=== PATIENT | female | born 1925 | race Caucasian/White ===

== ENCOUNTER 2017-01-28 06:59 | Emergency (ER) | payer OTHER, MEDICARE ==
[2017-01-28] MEDS ORDERED: ACETAMINOPHEN 325 MG TABLET (FP) PO ONE (07:21)
[2017-01-28 07:30] VITALS: TEMP 98.2; BMI 24.9
--- NOTE | 2017-01-28 07:30 | PDOC ---
History of Present Illness <Gail Lockhart - Last Filed: 01/28/17 08:48> - General History Source: Patient Exam Limitations: No Limitations - History of Present Illness Initial Comments: 01/28/17 07:30 89y F hx of htn, presents with fall. Tjhe pt was in her usual state of health, this morning, she went to the bathroom and when she was getting off of the toilet, she tripped and fell landing on her right side. The pt denies any loc, syncope, cp, sob, abd pain, back pain, headach, dizziness, vision changes, numbness/weakness/tingling, fever/chills, cough, diarrhea, dysrua/frqeuncy. The pt is complaining of pain on her right rib area, denies any sob. is on asa 325mg <Andrew Mckeon - Last Filed: 01/29/17 07:08> - General Chief Complaint: Injury Stated Complaint: FALL Time Seen by Provider: 01/28/17 07:12 Past History <Gail Lockhart - Last Filed: 01/28/17 08:48> <Andrew Mckeon - Last Filed: 01/29/17 07:08> - Past Medical History Allergies/Adverse Reactions: Allergies Allergy/AdvReac Type Severity Reaction Status Date / Time No Known Allergies Allergy Verified 01/28/17 07:20 Home Medications: Ambulatory Orders Oxycodone HCl/Acetaminophen [Percocet 5-325 mg Tablet -] 0.5 combo PO Q6H PRN # 14 tablet MDD 4 01/28/17 Review of Systems - Review of Systems Able to Perform ROS?: Yes Comments:: 01/28/17 07:33 Constitutional - no reported Fever, Chills, weakness, HEENT: no reported vision changes, sore throat Respiratory: no reported cough, sob, hemoptysis Cardiac: no reported chest pain, palpitations, light headedness, leg swelling Abd/GI: no reported abd pain, nausea, vomiting, blood per rectum, melena, diarrhea : no reported dysuria, frequency, discharge Musculskelatal - +rib pain no reported back pain, joint swelling skin - no reported bruising, erythema, rash neurological: no reported headache, numbness, focal weakness, tingling, ataxia, weakness hematologic: no reported anemia, easy bruising, easy bleeding <Andrew Mckeon - Last Filed: 01/29/17 07:08> *Physical Exam - Vital Signs Last Vital Signs Temp Pulse Resp BP Pulse Ox 98.2 F 71 20 120/67 100 01/28/17 07:21 01/28/17 07:21 01/28/17 07:21 01/28/17 07:21 01/28/17 07:21 <UtsGail - Last Filed: 01/28/17 08:48> - Physical Exam Comments: 01/28/17 07:33 GENERAL: The patient is awake, alert, and fully oriented, Nontoxic - in no acute distress. HEAD: Normocephalic, atraumatic. EYES: extraocular movements intact, sclera anicteric, conjunctiva clear. ENT: Normal voice, Moist mucous membranes. NECK: Normal range of motion, supple LUNGS: Breath sounds equal, clear to auscultation bilaterally. No wheezes, no rhonchi, no rales. HEART: Regular rate and rhythm, normal S1 and S2 without murmur, rub or gallop. ABDOMEN: Soft, nontender, normoactive bowel sounds. No guarding, no rebound. . No CVA tenderness EXTREMITIES: Normal range of motion, no edema. No clubbing or cyanosis. No cords, erythema, or tenderness. NEUROLOGICAL: No facial assymetry, Normal speech, PSYCH: Normal mood, normal affect. SKIN: Warm, Dry, normal turgor, BACK: No midline tenderness to the cervical, thoracic or lumbar spine MSK: Tenderness to the right flank/rib area w/o signs of trauma, crepitus. FROM of b/l shoulders, elbows, wrist. FROM of hips, knees, ankles - No signs of ecchymosis, erythema, tenderness, or crepitus noted on palpation extremities, chest wall, clavicals, back. <Andrew Mckeon - Last Filed: 01/29/17 07:08> ED Treatment Course - RADIOLOGY Radiograph Interpretation: 01/28/17 08:49 Chest Xray impression reported by Dr. Paul Carreno: Acute anterior right eigth rib fracture. Large heart. Previous OHS. No pneumothorax. - Medications Given in the ED: ED Medications Discontinued Medications Generic Name Dose Route Start Last Admin Trade Name Freq PRN Reason Stop Dose Admin Acetaminophen 650 mg 01/28/17 07:21 01/28/17 07:36 Tylenol - PO 01/28/17 07:22 650 mg ONCE ONE Administration <Gail Lockhart - Last Filed: 01/28/17 08:48> Medical Decision Making - Medical Decision Making 01/28/17 07:34 89y F s/p mechanical fall presenting with R rib pain without suyncope/loc pt with mild tenderess to the right rib area, otherwise without complaint will obtain cxr, tylenol 01/28/17 09:26 +acute 8th rib fx on right side pt feeling improved on tylenol will d/c pt with tylenol (2 325mg) and 1/2 perc for break through pain discussed return precuations I discussed the physical exam findings, ancillary test results and final diagnoses with the patient. I answered all of the patient's questions. The patient was satisfied with the care received and felt comfortable with the discharge plan and treatment plan. The patient will call their primary care physician within 24 hours to arrange follow-up and will return to the Emergency Department with any new, persistent or worsening symptoms. <Andrew Mckeon - Last Filed: 01/29/17 07:08> *DC/Admit/Observation/Transfer - Attestations Scribe Attestion: 01/28/17 08:50 Documentation prepared by Gail Lockhart, acting as certified medical coding specialist for Andrew Mckeon MD. <Gail Lockhart - Last Filed: 01/28/17 08:48> - Discharge Dispostion Admit: No <Andrew Mckeon - Last Filed: 01/29/17 07:08> Diagnosis at time of Disposition: Closed rib fracture Qualifiers: Encounter type: initial encounter Rib fracture type: single rib Laterality: right Qualified Code(s): S22.31XA - Fracture of one rib, right side, initial encounter for closed fracture - Discharge Dispostion Disposition: HOME Condition at time of disposition: Improved - Prescriptions Prescriptions: Oxycodone HCl/Acetaminophen [Percocet 5-325 mg Tablet -] 0.5 combo PO Q6H PRN # 14 tablet MDD 4 PRN Reason: Pain - Referrals Referrals: Lupe Parker MD [Primary Care Provider] - - Patient Instructions Printed Discharge Instructions: DI for Rib Fracture Additional Instructions: Return to the emergency department immediately with ANY new, persistent or worsening symptoms including any shortness of breath, fever, or persistent pain. Take 650mg of tylenol every 6hrs for pain, if you have breakthrough pain, you can take 1/2 of a percocet for relief. You MUST call and follow up with your doctor in 3 days for further evaluation of your symptoms. Results were discussed with you. Please make sure your doctor reviews the results of your emergency evaluation.
[2017-01-28] MEDS ORDERED: ACETAMINOPHEN 325 MG TABLET (FP) ONE (07:31)
[2017-01-28 09:54] VITALS: BP 118/65; PULSE 100
== END 2017-01-28 09:52 | disposition home or self-care (01) ==
LOC: SUPCPDRO 06:59 → JER 06:59
DX: S22.31XA Fracture of one rib, right side, initial encounter for closed fracture (principal); W18.39XA Other fall on same level, initial encounter; Y93.89 Activity, other specified; Y92.002 Bathroom of unspecified non-institutional (private) residence as the place of occurrence of the external cause
CPT/HCPCS: 71101-TC-RT; 99283-25